=== PATIENT | female | born 1970 | race Caucasian/White ===

== ENCOUNTER 2025-05-14 11:35 | Emergency (ER) | payer MEDICAID ==
[2025-05-14] MEDS ORDERED: Sodium Chloride 0.9% 10 ML Syringe FLUSH PRN (12:10)
[2025-05-14 12:27] LABS: BASOPHILS PERCENT AUTO 0.3 % (0.0-1.0); EOSINOPHILS PERCENT AUTO 1.0 % (1.0-3.0); LYMPHOCYTES PERCENT AUTO 10.7 % (20.5-50.1); MONOCYTES PERCENT AUTO 9.1 % (2-8); NEUTROPHILS PERCENT AUTO 78.9 % (42.2-75.2); PLATELET COUNT,PLT 289 10^3/uL (150-450); RED BLOOD CELL COUNT 5.25 10^6/uL (4.2-5.4); WHITE BLOOD CELL COUNT,WBC 12.0 10^3/uL (5.0-10.0)
[2025-05-14 12:42] LABS: ALANINE AMINOTRANSFERASE,ALT 39 U/L (14-59); ASPARTATE AMNIOTRANSFERASE,AST 120 U/L (15-37); BILIRUBIN TOTAL 1.1 mg/dL (0.2-1.0); BLOOD UREA NITROGEN,BUN 10 mg/dL (7-18); CARBON DIOXIDE,CO2 26 mmol/L (21-32); CHLORIDE,CL 98 mmol/L (98-107); CREATININE 0.95 mg/dL (0.55-1.02); EST CRCL DRUG DOSING (CG) 58.46 mL/min; GLUCOSE RANDOM 138 mg/dL (70-99); POTASSIUM,K 4.9 mmol/L (3.5-5.1); PROTEIN TOTAL,TP 7.9 g/dL (6.4-8.2); SODIUM,NA 137 mmol/L (136-145)
[2025-05-14 12:43] LABS: A/G RATIO 0.49; ESTIMATED GFR 71 mL/min (>=60)
[2025-05-14 12:45] LABS: LACTIC ACID 2.0 mmol/L (0.4-2.0)
[2025-05-14 12:49] LABS: B-TYPE NATRIURETIC PEPTIDE,BNP 108 pg/ml (0-100)
[2025-05-14 12:54] LABS: INR 1.2 (0.9-1.2); PTT,PARTIAL THROMBOPLSTIN TIME 24.8 SEC (22.0-34.0)
[2025-05-14] MEDS ORDERED: Heparin Sodium 5,000 Units/ML Vial IVPUSH ONE (14:11)
[2025-05-14] MEDS: Heparin Sodium/0.45% NaCl 25,000 UNITS/500 ML BAG IV SCH (14:44)
[2025-05-14] MEDS: Heparin Sodium 5,000 Units/ML Vial IVPUSH ONE (14:44)
[2025-05-14 15:34] LABS: METHAMPHETAMINES,URINE NEGATIVE (NEGATIVE)
[2025-05-14 15:35] LABS: AMPHETAMINES,URINE NEGATIVE (NEGATIVE); BARBITURATES,URINE NEGATIVE (NEGATIVE); MDMA (ECSTASY), URINE NEGATIVE (NEGATIVE); OPIATES,URINE NEGATIVE (NEGATIVE); OXYCODONE,URINE POSITIVE (NEGATIVE); PHENCYCLIDINE,URINE NEGATIVE (NEGATIVE); TCA,URINE NEGATIVE (NEGATIVE)
[2025-05-14 19:43] VITALS: BP 107/77; PULSE 79
== END 2025-05-14 17:50 ==
LOC: DL.ED 11:35
DX: C79.60 Secondary malignant neoplasm of unspecified ovary (principal); I82.412 Acute embolism and thrombosis of left femoral vein; Z79.899 Other long term (current) drug therapy
CPT/HCPCS: 36415; 80053; 80305; 82140; 83605; 83690; 83735; 83880; 84145; 84484; 85025; 85610; 85730; 86140; 87040; 96365; 96366; 99285; A9270; J1644